=== PATIENT | female | born 1955 | race Caucasian/White ===

== ENCOUNTER 2019-08-02 12:17 | Emergency (ER) | payer BC ==
[2019-08-02] MEDS ORDERED: Cyclobenzaprine 10 MG Tab PO ONE (12:18)
[2019-08-02] MEDS ORDERED: Acetaminophen/HYDROcodone 325-10 MG Tab PO ONE ×2 (12:18→12:38)
[2019-08-02] MEDS ORDERED: Ketorolac 30 MG/ML SDV IM ONE (12:38)
[2019-08-02] MEDS ORDERED: Ondansetron 4 MG Tab.DIS PO ONE (12:39)
--- NOTE | 2019-08-02 13:43 | EDM.PDOC ---
Scribed by Ana Carlin 08/02/19 1242 for Bharat Lin MD ED HPI GENERAL MEDICAL PROBLEM - General Chief Complaint: Back Pain or Injury Stated Complaint: RT HIP PAIN Time Seen by Provider: 08/02/19 12:30 Source of Information: Reports: Patient, RN, RN Notes Reviewed History Limitations: Reports: No Limitations - History of Present Illness INITIAL COMMENTS - FREE TEXT/NARRATIVE: Patient presents to ER by POV with complaint of low back pain and right hip pain that started yesterday at 4 P.M. by a fall. She was carrying groceries in from the garage to the house. She set the groceries onto the floor, which is 2 steps up from the landing, missed the step and fell onto the landing. She denies head injury, LOC or neck pain. She denies loss of bowel or bladder control, saddle area numbness or motor weakness. Denies cough, chest pain, shortness of breath, sore throat, runny nose, recent travel, or any exposures to confirmed or suspected Covid-19 cases. Onset Date: 08/01/19 Duration: Constant Location: Reports: Back (lower and right hip) Quality: Reports: Ache Severity: Severe Improves with: Reports: Other (lying on her left side) Worsens with: Reports: Movement Associated Symptoms: Reports: No Other Symptoms Right Lower Back Pain Score (Numeric/FACES): 10 - Related Data Allergies Allergy/AdvReac Type Severity Reaction Status Date / Time insects Allergy Itching Uncoded 08/02/19 12:37 Home Meds: Home Meds Levothyroxine 25 mcg PO ACBREAKFAST 08/02/19 [History] amLODIPine [Norvasc] 5 mg PO DAILY 08/02/19 [History] metFORMIN [Glucophage XR] 500 mg PO BIDMEALS 08/02/19 [History] Past Medical History Cardiovascular History: Reports: Hypertension Endocrine/Metabolic History: Reports: Hypothyroidism, Obesity/BMI 30+ Social & Family History - Family History Family Medical History: Noncontributory ED ROS GENERAL - Review of Systems Review Of Systems: Comprehensive ROS is negative, except as noted in HPI. ED EXAM,LOWER BACK PAIN/INJURY - Physical Exam Exam: See Below Exam Limited By: No Limitations General Appearance: Alert, WD/WN, No Apparent Distress Throat/Mouth: Normal Inspection, Normal Voice, No Airway Compromise Head: Atraumatic, Normocephalic Neck: Normal Inspection, Non-Tender, Full Range of Motion Respiratory/Chest: No Respiratory Distress, Lungs Clear, Chest Non-Tender Cardiovascular: Normal Peripheral Pulses, Regular Rate, Rhythm, No Edema GI/Abdominal: Normal Bowel Sounds, Soft, Non-Tender Back Exam: Decreased Range of Motion (lumbar, Rt hip), Muscle Spasm, Paraspinal Tenderness (Rt lower lumbar and Rt buttock). No: CVA Tenderness (L), CVA Tenderness (R), Vertebral Tenderness Extremities: Leg Pain (Rt buttock and hip), Limited Range of Motion (due to pain at low back and Rt hip). No: Joint Swelling, Arm Pain Neurological: Alert, Normal Mood/Affect, Normal Dorsiflexion, CN II-XII Intact, Normal Plantar Flexion, No Motor/Sensory Deficits, Oriented x 3, Other ( Antalgic gait) Psychiatric: Normal Affect, Normal Mood Skin Exam: Warm, Dry, Intact, Normal Color, No Rash, Other (No visible bruising or redness at area of pain) Course - Vital Signs Last Recorded V/S: Last Vital Signs Temp 97.6 F 08/02/19 12:33 Pulse 79 08/02/19 12:33 Resp 18 08/02/19 12:33 BP 125/64 08/02/19 12:33 Pulse Ox 95 08/02/19 12:33 - Orders/Labs/Meds Orders: Active Orders 24 hr Category Date Time Status Pelvis wo Cont [CT] Stat Exams 08/02/19 12:39 Taken Meds: Medications Discontinued Medications Generic Name Dose Route Start Last Admin Trade Name Domingo PRN Reason Stop Dose Admin Hydrocodone Bitart/Acetaminophen 1 tab 08/02/19 12:38 08/02/19 12:48 [place] 325-10 Mg PO 08/02/19 12:39 1 tab ONETIME ONE Administration Ketorolac Tromethamine 60 mg 08/02/19 12:38 08/02/19 12:49 Toradol IM 08/02/19 12:39 60 mg ONETIME ONE Administration Ondansetron HCl 4 mg 08/02/19 12:39 08/02/19 12:48 Zofran Odt PO 08/02/19 12:40 4 mg ONETIME ONE Administration - Radiology Interpretation Free Text/Narrative:: [facility] Call: [phone] assistance Online chat: [email or web address] Name: BELL MARQUES Age: 64Years F Date: 08/02/2019 SSN: -- : [id number] Study: CT PELVIS WO Requesting Physician: BHARAT LIN Images: [phone] Addl Studies: Provided Clinical History: Contrast: Without Contrast Medium: Contrast Amount: Contrast Method: CONFIDENTIALITY STATEMENT This report is intended only for use by the referring physician, and only in accordance with law. If you received this in error, call [phone]. Page 1 of 1 PROCEDURE INFORMATION: Exam: CT Pelvis Without Contrast; Skeletal Exam date and time: 08/02/2019 1:10 PM Age: 64 years old Clinical indication: Other: Fell off 2 steps, RT posterior pelvis/scaral pain TECHNIQUE: Imaging protocol: Computed tomography images of the pelvis without contrast. Exam focused on the skeletal structures. Radiation optimization: All CT scans at this facility use at least one of these dose optimization techniques: automated exposure control; mA and/or kV adjustment per patient size (includes targeted exams where dose is matched to clinical indication); or iterative reconstruction. COMPARISON: No relevant prior studies available. FINDINGS: Bones/joints: Unremarkable. No acute fracture. No dislocation. Soft tissues: Unremarkable. No hematoma. IMPRESSION: No acute fracture. Thank you for allowing us to participate in the care of your patient. Dictated and Authenticated by: Roman Thomas MD 08/02/2019 1:28 PM Central Time ([place] & [place]) Departure - Departure Time of Disposition: 13:38 Disposition: Home, Self-Care 01 Condition: Good Clinical Impression: Sacroiliac joint dysfunction of right side Fall as cause of accidental injury at home as place of occurrence Qualifiers: Encounter type: initial encounter Qualified Code(s): W19.XXXA - Unspecified fall, initial encounter; Y92.009 - Unspecified place in unspecified non- institutional (private) residence as the place of occurrence of the external cause Lumbosacral injury Qualifiers: Encounter type: initial encounter Qualified Code(s): S39.92XA - Unspecified injury of lower back, initial encounter - Discharge Information *PRESCRIPTION DRUG MONITORING PROGRAM REVIEWED*: No *COPY OF PRESCRIPTION DRUG MONITORING REPORT IN PATIENT JORGE: No Instructions: Acute Back Pain, Adult, Sacroiliac Joint Dysfunction Forms: ED Department Discharge Additional Instructions: Rx: Vicodin 10mg/325mg *Do not drive while under the influence of this medication. Rx: Naprosyn 500mg *Take with meals. Rx: Cyclobenzaprine 10mg *Do not drive while under the influence of this medication. Ice/cold packs to area of pain for the first 3 days, then alternate cold and hot packs. Follow up in clinic in 3 to 4 days if not improving as expected. Sepsis Event Note - Focused Exam Vital Signs: Vital Signs Temp Pulse Resp BP Pulse Ox 08/02/19 12:33 97.6 F 79 18 125/64 95 Date Exam was Performed: 08/02/19 Time Exam was Performed: 13:38 - My Orders Last 24 Hours: My Active Orders 08/02/19 12:39 Pelvis wo Cont [CT] Stat - Assessment/Plan Last 24 Hours: My Active Orders 08/02/19 12:39 Pelvis wo Cont [CT] Stat I have read and agree with the documentation that has been completed regarding this visit. By signing this record, I attest that the documentation was completed in my physical presence and is an accurate record of the encounter.
[2019-08-02] MEDS ORDERED: Cyclobenzaprine 10 MG Tab ONE (13:50)
[2019-08-02] MEDS ORDERED: Acetaminophen/HYDROcodone 325-10 MG Tab ONE (13:50)
== END 2019-08-02 14:13 | disposition home or self-care (01) ==
LOC: DL.ED 12:17
DX: S39.92XA Unspecified injury of lower back, initial encounter (principal); M53.3 Sacrococcygeal disorders, not elsewhere classified; I10 Essential (primary) hypertension; E03.9 Hypothyroidism, unspecified; E66.9 Obesity, unspecified; Z68.34 Body mass index [BMI] 34.0-34.9, adult; Z91.038 Other insect allergy status; Z79.899 Other long term (current) drug therapy; W10.8XXA Fall (on) (from) other stairs and steps, initial encounter; Y92.009 Unspecified place in unspecified non-institutional (private) residence as the place of occurrence of the external cause
CPT/HCPCS: 72192; 96372; 99283-25; A9270-GY; J1885

== ENCOUNTER 2022-09-03 19:49 | Observation (INO) | payer MEDICARE, BC ==
[2022-09-03] MEDS ORDERED: Sodium Chloride 0.9% 10 ML Syringe FLUSH PRN ×2 (21:59→23:14)
[2022-09-03 22:15] LABS: BASOPHILS PERCENT AUTO 0.5 % (0.0-1.0); EOSINOPHILS PERCENT AUTO 4.9 % (1.0-3.0); HEMATOCRIT 45.9 % (37.0-47.0); HEMOGLOBIN 14.9 g/dL (12.0-16.0); LYMPHOCYTES PERCENT AUTO 36.5 % (20.5-50.1); MEAN CORPUSCULAR HEMOGLOBIN 29.7 pg (27.0-34.0); MEAN CORPUSCULAR HGB CONC 32.5 g/dL (33.0-35.0); MEAN CORPUSCULAR VOLUME 91.6 fL (80-100); MONOCYTES PERCENT AUTO 7.4 % (2-8); NEUTROPHILS PERCENT AUTO 50.7 % (42.2-75.2); PLATELET COUNT,PLT 241 10^3/uL (150-450); RED BLOOD CELL COUNT 5.01 10^6/uL (4.2-5.4); WHITE BLOOD CELL COUNT,WBC 14.4 10^3/uL (5.0-10.0)
[2022-09-03 22:41] LABS: A/G RATIO 0.8; ALANINE AMINOTRANSFERASE,ALT 37 U/L (14-59); ALBUMIN 3.5 g/dL (3.4-5.0); ALKALINE PHOSPHATASE 72 U/L (46-116); ANION GAP 13.2 mEq/L (7-13); ASPARTATE AMNIOTRANSFERASE,AST 25 U/L (15-37); BILIRUBIN TOTAL 0.3 mg/dL (0.2-1.0); BLOOD UREA NITROGEN,BUN 17 mg/dL (7-18); CALCIUM 9.2 mg/dL (8.5-10.1); CARBON DIOXIDE,CO2 29 mmol/L (21-32); CHLORIDE,CL 105 mmol/L (98-107); CREATININE 1.06 mg/dL (0.55-1.02); EST CRCL DRUG DOSING (CG) 45.08 mL/min; GLUCOSE RANDOM 151 mg/dL (70-99); POTASSIUM,K 4.2 mmol/L (3.5-5.1); PROTEIN TOTAL,TP 7.8 g/dL (6.4-8.2); SODIUM,NA 143 mmol/L (136-145)
[2022-09-03 22:43] LABS: C-REACTIVE PROTEIN < 0.2 mg/dL (0.0-0.9); ESTIMATED GFR 58 mL/min (>=60)
[2022-09-03] MEDS ORDERED: Ampicillin/Sulbactam Na 3 GM in Sodium Chloride 0.9% 100 ML IV ONE (22:43)
[2022-09-03 22:45] LABS: LACTIC ACID 1.6 mmol/L (0.4-2.0)
[2022-09-03] MEDS ORDERED: Glucagon,Human Recombinant 1 MG Vial IM PRN (23:13)
[2022-09-03] MEDS ORDERED: 50% Dextrose in Water 50 ML Syringe IVPUSH PRN (23:13)
[2022-09-03] MEDS ORDERED: Dexamethasone 4 MG/ML SDV IVPUSH ONE (23:13)
[2022-09-03] MEDS ORDERED: Insulin Lispro 100 Units/ML 3 ML Vial SUBCUT ONE (23:13)
[2022-09-03] MEDS ORDERED: HYDROmorphone 0.5 MG/0.5 ML Syringe IVPUSH PRN (23:14)
[2022-09-03] MEDS ORDERED: Albuterol/Ipratropium 3.0-0.5 MG/3 ML Neb Soln NEB PRN (23:14)
[2022-09-03] MEDS ORDERED: Acetaminophen 325 MG Tab PO PRN (23:14)
[2022-09-03] MEDS ORDERED: Acetaminophen/oxyCODONE 325-5 MG Tab PO PRN (23:14)
[2022-09-03] MEDS ORDERED: Bisacodyl 5 MG Tab PO PRN (23:14)
[2022-09-03] MEDS ORDERED: Ondansetron 4 MG/2 ML SDV IVPUSH PRN (23:14)
[2022-09-03] MEDS ORDERED: Magnesium Hydroxide 400 MG/5 ML Susp 30 ML Cup PO PRN (23:14)
[2022-09-03] MEDS ORDERED: Polyethylene Glycol 3350 Powder 17 GM Packet PO PRN (23:14)
[2022-09-03] MEDS ORDERED: Metoprolol Tartrate 5 MG/5 ML SDV IVPUSH PRN (23:18)
[2022-09-03] MEDS ORDERED: hydrALAZINE 20 MG/ML SDV IVPUSH PRN (23:18)
[2022-09-03] MEDS ORDERED: Naproxen 250 MG Tab PO ONE (23:43)
[2022-09-04] MEDS: Temazepam 15 MG Cap PO PRN ×2 (00:09→22:12)
[2022-09-04] MEDS: Nicotine 21 MG/24 Hr Patch TRDERM SCH ×2 (00:16→10:22)
[2022-09-04] MEDS: Levothyroxine 25 MCG Tab PO SCH (05:48)
[2022-09-04] MEDS: Ampicillin/Sulbactam Na 1.5 GM in Sodium Chloride 0.9% 100 ML IV SCH ×3 (05:49→17:35)
[2022-09-04 06:45] LABS: BASOPHILS PERCENT AUTO 0.4 % (0.0-1.0); EOSINOPHILS PERCENT AUTO 0.3 % (1.0-3.0); HEMATOCRIT 46.1 % (37.0-47.0); HEMOGLOBIN 14.9 g/dL (12.0-16.0); LYMPHOCYTES PERCENT AUTO 15.5 % (20.5-50.1); MEAN CORPUSCULAR HEMOGLOBIN 29.4 pg (27.0-34.0); MEAN CORPUSCULAR HGB CONC 32.3 g/dL (33.0-35.0); MEAN CORPUSCULAR VOLUME 91.1 fL (80-100); NEUTROPHILS PERCENT AUTO 82.8 % (42.2-75.2); PLATELET COUNT,PLT 236 10^3/uL (150-450); RED BLOOD CELL COUNT 5.06 10^6/uL (4.2-5.4); WHITE BLOOD CELL COUNT,WBC 10.3 10^3/uL (5.0-10.0)
[2022-09-04 06:53] LABS: ALBUMIN 3.2 g/dL (3.4-5.0); ANION GAP 14.7 mEq/L (7-13); BILIRUBIN TOTAL 0.3 mg/dL (0.2-1.0); BUN/CREATININE RATIO 16.5 (No establ ref range); C-REACTIVE PROTEIN 0.2 mg/dL (0.0-0.9); CALCIUM 8.7 mg/dL (8.5-10.1); CREATININE 1.09 mg/dL (0.55-1.02); EST CRCL DRUG DOSING (CG) 43.84 mL/min; POTASSIUM,K 4.7 mmol/L (3.5-5.1); PROTEIN TOTAL,TP 7.3 g/dL (6.4-8.2)
[2022-09-04 06:54] LABS: A/G RATIO 0.78
[2022-09-04 07:31] LABS: SEDIMENTATION RATE MANUAL 11 mm/hr (0-20)
[2022-09-04] MEDS: Dexamethasone 4 MG/ML SDV IVPUSH SCH ×2 (10:21→20:37)
[2022-09-04] MEDS: Saccharomyces Boulardii (Probiotic) 250 MG Cap PO SCH ×2 (10:21→20:36)
[2022-09-04] MEDS: amLODIPine 5 MG Tab PO SCH (10:23)
[2022-09-04] MEDS: Naproxen 250 MG Tab PO SCH ×2 (10:23→20:37)
[2022-09-04] MEDS: Sodium Chloride 0.9% 500 ML IV SCH ×2 (10:53→15:06)
[2022-09-05] MEDS: Ampicillin/Sulbactam Na 1.5 GM in Sodium Chloride 0.9% 100 ML IV SCH ×2 (00:05→05:38)
[2022-09-05] MEDS: Levothyroxine 25 MCG Tab PO SCH (05:37)
[2022-09-05 06:19] LABS: BASOPHILS PERCENT AUTO 0.1 % (0.0-1.0); HEMATOCRIT 41.2 % (37.0-47.0); HEMOGLOBIN 13.3 g/dL (12.0-16.0); LYMPHOCYTES PERCENT AUTO 13.4 % (20.5-50.1); MEAN CORPUSCULAR HEMOGLOBIN 29.6 pg (27.0-34.0); MEAN CORPUSCULAR HGB CONC 32.3 g/dL (33.0-35.0); MEAN CORPUSCULAR VOLUME 91.8 fL (80-100); MONOCYTES PERCENT AUTO 3.8 % (2-8); NEUTROPHILS PERCENT AUTO 82.7 % (42.2-75.2); PLATELET COUNT,PLT 226 10^3/uL (150-450); RED BLOOD CELL COUNT 4.49 10^6/uL (4.2-5.4); WHITE BLOOD CELL COUNT,WBC 17.1 10^3/uL (5.0-10.0)
[2022-09-05 06:42] LABS: ALANINE AMINOTRANSFERASE,ALT 29 U/L (14-59); ALBUMIN 2.8 g/dL (3.4-5.0); ALKALINE PHOSPHATASE 63 U/L (46-116); ANION GAP 10.2 mEq/L (7-13); ASPARTATE AMNIOTRANSFERASE,AST 15 U/L (15-37); BILIRUBIN TOTAL 0.3 mg/dL (0.2-1.0); BLOOD UREA NITROGEN,BUN 21 mg/dL (7-18); BUN/CREATININE RATIO 21.9 (No establ ref range); CARBON DIOXIDE,CO2 26 mmol/L (21-32); CHLORIDE,CL 110 mmol/L (98-107); CREATININE 0.96 mg/dL (0.55-1.02); EST CRCL DRUG DOSING (CG) 49.78 mL/min; GLUCOSE RANDOM 235 mg/dL (70-99); MAGNESIUM 2.1 mg/dL (1.8-2.4); POTASSIUM,K 4.2 mmol/L (3.5-5.1); SODIUM,NA 142 mmol/L (136-145)
[2022-09-05 06:43] LABS: A/G RATIO 0.88; C-REACTIVE PROTEIN < 0.2 mg/dL (0.0-0.9); ESTIMATED GFR 65 mL/min (>=60)
[2022-09-05 07:11] LABS: SEDIMENTATION RATE MANUAL 10 mm/hr (0-20)
[2022-09-05] MEDS: Saccharomyces Boulardii (Probiotic) 250 MG Cap PO SCH (09:25)
[2022-09-05] MEDS: Naproxen 250 MG Tab PO SCH (09:25)
[2022-09-05] MEDS: amLODIPine 5 MG Tab PO SCH (09:26)
[2022-09-05] MEDS: Nicotine 21 MG/24 Hr Patch TRDERM SCH (09:32)
== END 2022-09-05 11:00 | disposition home or self-care (01) ==
LOC: DL.ED 19:49 → DL.MS 22:43
PROVIDERS: ADMIT Internal Medicine; ATTEND Internal Medicine
DX: D72.829 Elevated white blood cell count, unspecified (principal); F17.210 Nicotine dependence, cigarettes, uncomplicated; E11.65 Type 2 diabetes mellitus with hyperglycemia; L03.221 Cellulitis of neck; I10 Essential (primary) hypertension; E03.9 Hypothyroidism, unspecified; E66.9 Obesity, unspecified; Z68.36 Body mass index [BMI] 36.0-36.9, adult; Z79.899 Other long term (current) drug therapy; Z79.890 Hormone replacement therapy; Z79.84 Long term (current) use of oral hypoglycemic drugs; Z91.038 Other insect allergy status
CPT/HCPCS: 36415; 70490; 80053; 82947; 83605; 83735; 84145; 85025; 85651; 86140; 87040; 87081; 87430; 96365; 96366; 96375; 96376; 99284; A9270; G0378; J0295; J0360; J1100; J3490; J7040; J1815-GY

== ENCOUNTER 2024-06-29 06:55 | Day surgery (SDC) | payer BC, MEDICARE ==
[2024-06-29] MEDS ORDERED: Midazolam 1 MG/ML 2 ML SDV IV ONE (07:19)
[2024-06-29] MEDS ORDERED: fentaNYL 100 MCG/2 ML SDV ONE (07:19)
[2024-06-29] MEDS ORDERED: fentaNYL 100 MCG/2 ML SDV IV ONE (07:19)
[2024-06-29] MEDS ORDERED: Midazolam 1 MG/ML 2 ML SDV ONE (07:19)
[2024-06-29] MEDS: Dextrose 5%-0.45% NaCl 1,000 ML IV SCH (07:20)
[2024-06-29] MEDS: fentaNYL 100 MCG/2 ML SDV IV ONE ×2 (08:46→08:47)
[2024-06-29] MEDS: Midazolam 1 MG/ML 2 ML SDV IV ONE ×4 (08:48→08:55)
[2024-06-29] MEDS ORDERED: Dextrose 5%-0.45% NaCl 1,000 ML IV SCH (09:19)
== END 2024-06-29 10:34 | disposition home or self-care (01) ==
LOC: DL.ENDO 06:55
PROVIDERS: ATTEND Internal Medicine Gastroenterology
DX: Z12.11 Encounter for screening for malignant neoplasm of colon (principal); D12.4 Benign neoplasm of descending colon; D12.0 Benign neoplasm of cecum; K64.4 Residual hemorrhoidal skin tags; K64.8 Other hemorrhoids; K57.30 Diverticulosis of large intestine without perforation or abscess without bleeding; E11.9 Type 2 diabetes mellitus without complications; I10 Essential (primary) hypertension; E03.9 Hypothyroidism, unspecified; E66.9 Obesity, unspecified; F17.210 Nicotine dependence, cigarettes, uncomplicated; Z88.8 Allergy status to other drugs, medicaments and biological substances; Z68.33 Body mass index [BMI] 33.0-33.9, adult; Z86.0100 Personal history of colon polyps, unspecified
CPT/HCPCS: 45385; J2250; J3010; J7799; 88305